=== PATIENT | female | born 1980 ===

== ENCOUNTER 2020-06-02 12:37 | Emergency (ER) | payer SELFPAY ==
[2020-06-02 13:56] VITALS: BP 146/80
--- NOTE | 2020-06-02 14:39 | Emergency Department Report ---
HPI - General Chief Complaint: Extremity Injury, Lower Time Seen by Provider: 06/02/20 14:23 - HPI HPI: This is a 40-year-old female who presents to the emergency department with 2 complaints. First, the patient complains of a 2-day history of right ankle and foot pain, and swelling. She denies any trauma, injury, or inciting event. The pain mostly occurs when trying to bear weight and therefore the patient has difficulty with ambulation. She has not taken anything for symptoms prior to presentation today. Secondly, the patient says "I know I have a sinus infection." For the past few days the patient has been having increased mucus production, a mixed dry and productive cough, and some sinus pressure. She has a past medical history of anemia, IBS, and asthma. No recent travel or sick contacts at home. She denies any fever, shortness of breath, chest pain, headache. ED Past Medical Hx - Past Medical History Previous Medical History?: Yes Hx Asthma: Yes Additional medical history: IBS,ANEMIC- NO TRANSFUSIONS - Surgical History Past Surgical History?: Yes Additional Surgical History: TUBILIGATION, CERVICAL CA - Social History Smoking Status: Never Smoker Substance Use Type: None - Medications Home Medications: Home Medications Medication Instructions Recorded Confirmed Last Taken Type Azithromycin [Zithromax Z-CALEB] 250 mg PO DAILY #6 tab 06/02/20 Unknown Rx Benzonatate [Tessalon Perles] 100 mg PO Q8HR PRN #20 capsule 06/02/20 Unknown Rx ED Review of Systems ROS: Stated complaint: CANT WALK Other details as noted in HPI Comment: All other systems reviewed and negative Constitutional: denies: chills, fever Eyes: denies: eye pain, vision change ENT: congestion. denies: ear pain Respiratory: cough. denies: shortness of breath Cardiovascular: edema (right ankle/foot). denies: chest pain Gastrointestinal: denies: abdominal pain, vomiting Musculoskeletal: joint swelling, arthralgia Skin: denies: rash, lesions Neurological: denies: numbness, paresthesias Physical Exam - Physical Exam Vital Signs: Vital Signs 06/02/20 06/02/20 13:52 14:22 Temperature 98.0 F Pulse Rate 71 60 Respiratory 15 18 Rate Blood Pressure 146/80 O2 Sat by Pulse 100 100 Oximetry Physical Exam: GENERAL: The patient is well-developed well-nourished. HENT: Normocephalic. Atraumatic. Patient has moist mucous membranes. Boggy nasal mucosa. EYES: Extraocular motions are intact. NECK: Supple. Trachea is midline. CHEST/LUNGS: Clear to auscultation. A productive sounding cough heard during examination. There is no respiratory distress noted. HEART/CARDIOVASCULAR: Regular. There is no tachycardia. There is no murmur. ABDOMEN: Abdomen is soft, nontender. Patient has normal bowel sounds. SKIN: Skin is warm and dry. Mild nonpitting swelling to the inferior portion of the right lateral ankle and right lateral foot. NEURO: The patient is awake, alert, and oriented. The patient is cooperative. The patient has no focal neurologic deficits. Normal speech. MUSCULOSKELETAL: There is tenderness to palpation to the right lateral ankle and just inferiorly to the right lateral foot. There is no limitation range of mo tion. ED Course Vital Signs 06/02/20 06/02/20 13:52 14:22 Temperature 98.0 F Pulse Rate 71 60 Respiratory 15 18 Rate Blood Pressure 146/80 O2 Sat by Pulse 100 100 Oximetry ED Medical Decision Making - Radiology Data Radiology results: image reviewed interpreted by me: X-ray of the right foot and ankle do not show any fracture, dislocation, or any acute processes. Chest x-ray does not show any acute process. There are no pleural effusions, obvious pneumonia and there is no pneumothorax. No significant cardiomegaly. - Medical Decision Making Patient presents with a 2-day history of pain to the right ankle and foot. She says that she did have some type of fall 3 weeks ago but did not have pain until 2 days ago. She has full range of motion and full muscle strength while laying down on the gurney. Patient has pain with bearing weight. X-rays were done of the right ankle and foot that did not show any fracture, dislocation, or any acute process. She was placed in a splint and on crutches to be nonweightbearing. She was given outpatient referrals for an orthopedist. Patient has a few days of sinus drainage, sinus pain and a mixed dry and productive cough. Chest x-ray does not show any pneumonia, pleural effusions, or any other acute process. She will be placed on a Z-Caleb and on Tessalon Perles. She has been instructed to follow-up with primary care. Critical Care Time: No Critical care attestation.: If time is entered above; I have spent that time in minutes in the direct care of this critically ill patient, excluding procedure time. ED Disposition Clinical Impression: Right ankle pain Qualifiers: Chronicity: acute Qualified Code(s): M25.571 - Pain in right ankle and joints of right foot Sinusitis Qualifiers: Sinusitis location: unspecified location Chronicity: unspecified Qualified Code(s): J32.9 - Chronic sinusitis, unspecified Upper respiratory infection Qualifiers: URI type: unspecified viral URI Qualified Code(s): J06.9 - Acute upper respiratory infection, unspecified Disposition: TO HOME OR SELFCARE Is pt being admited?: No Condition: Stable Instructions: Sinusitis (ED), Upper Respiratory Infection (ED), Arthralgia (ED) Additional Instructions: Please follow-up with a primary care physician in the next few days. Return to the emergency department with any worsening of your symptoms or with any acute distress. Please follow-up with a orthopedist regarding your right foot and ankle pain. I have given you a referral for to local orthopedic groups, Dr. Lyle and Alicia. Prescriptions: Benzonatate [Tessalon Perles] 100 mg PO Q8HR PRN #20 capsule PRN Reason: Cough Azithromycin [Zithromax Z-CALEB] 250 mg PO DAILY #6 tab Referrals: VALERIA LYLE MD [Staff Physician] - 3-5 Days [facility] [Provider Group] - 3-5 Days Time of Disposition: 15:57
--- NOTE | 2020-06-02 15:20 | XRay Report ---
CHEST 2 VIEWS INDICATION / CLINICAL INFORMATION: Cough. COMPARISON: None available. FINDINGS: SUPPORT DEVICES: None. HEART / MEDIASTINUM: There is mild cardiomegaly. Pulmonary vasculature is normal. LUNGS / PLEURA: No significant pulmonary or pleural abnormality. No pneumothorax. ADDITIONAL FINDINGS: No significant additional findings. IMPRESSION: Mild cardiomegaly without acute pulmonary disease. Signer Name: Bc Spicer MD Signed: 06/02/2020 3:15 PM Workstation Name: [id number]
--- NOTE | 2020-06-02 15:39 | XRay Report ---
RIGHT ANKLE 3 VIEWS RIGHT FOOT 3 VIEWS INDICATION / CLINICAL INFORMATION: Right ankle and foot pain/swelling without known trauma. COMPARISON: None available. FINDINGS: BONES / JOINT(S): The joint spaces are well-maintained. There is no evidence of fracture, subluxation or destructive lesion. SOFT TISSUES: No significant abnormality. ADDITIONAL FINDINGS: None. IMPRESSION: Negative studies. Signer Name: Bc Spicer MD Signed: 06/02/2020 3:34 PM Workstation Name: [id number]
== END 2020-06-02 16:45 | disposition home or self-care (01) ==
LOC: ED 12:37
DX: M25.571 Pain in right ankle and joints of right foot (principal); J01.90 Acute sinusitis, unspecified; J45.909 Unspecified asthma, uncomplicated; X50.0XXA Overexertion from strenuous movement or load, initial encounter; Z79.899 Other long term (current) drug therapy; Y93.89 Activity, other specified; Z98.51 Tubal ligation status; Y92.89 Other specified places as the place of occurrence of the external cause; Y99.8 Other external cause status
CPT/HCPCS: 71046; 99283